=== PATIENT | female | born 1965 | race Caucasian/White ===

== ENCOUNTER 2018-06-05 18:01 | Inpatient (IN) ==
[2018-06-05] MEDS ORDERED: ASPIRIN 325 MG TABLET PO STA (18:17)
[2018-06-05 18:58] LABS: Calcium 8.1 MG/DL (8.5-10.1); Osmolality,Calculated 280.1 MOS/KG (273-304); Potassium 3.3 MMOL/L (3.5-5.1)
[2018-06-05] MEDS ORDERED: HEPARIN/NACL 0.9% 2 UNITS/ML 1,000 ML IV ONE (19:15)
[2018-06-05] MEDS ORDERED: LIDOCAINE 1% 20 ML VIAL ONE (19:15)
[2018-06-05] MEDS ORDERED: HYDROmorphone 2 MG/1 ML VIAL ONE (19:40)
[2018-06-05] MEDS ORDERED: MIDAZOLAM 2 MG/2 ML VIAL ONE (19:40)
[2018-06-05] MEDS ORDERED: diphenhydrAMINE 50 MG/1 ML VIAL ONE (19:44)
[2018-06-05] MEDS ORDERED: HYDROCORTISONE 100 MG VIAL ONE (19:44)
[2018-06-05] MEDS ORDERED: FAMOTIDINE 20 MG/2 ML VIAL IV ONE (20:21)
[2018-06-05] MEDS ORDERED: ENOXAPARIN 30 MG/0.3 ML SYRINGE ONE (20:22)
[2018-06-05] MEDS ORDERED: NITROGLYCERIN DRIP 50 MG/250 ML BOTTLE IV ONE (20:34)
[2018-06-05] MEDS ORDERED: HEPARIN/NACL 0.9% 2 UNITS/ML 500 ML IV ONE (20:45)
[2018-06-05] MEDS ORDERED: TICAGRELOR 90 MG TABLET ONE (21:11)
[2018-06-05] MEDS ORDERED: ZALEPLON 5 MG CAPSULE PO PRN (21:22)
[2018-06-05] MEDS ORDERED: NITROGLYCERIN SL 0.4 MG TABLET SL PRN (21:22)
[2018-06-05] MEDS ORDERED: ONDANSETRON 4 MG/2 ML VIAL IV PRN (21:22)
[2018-06-05] MEDS ORDERED: ONDANSETRON 4 MG/2 ML VIAL ONE (21:22)
[2018-06-05] MEDS ORDERED: SODIUM CHLORIDE 0.9% 1,000 ML IV SCH (21:30)
[2018-06-05] MEDS ORDERED: ONDANSETRON 4 MG/2 ML VIAL IV ONE (22:07)
[2018-06-05] MEDS ORDERED: NITROGLYCERIN 2% OINT 1 INCH/GM PACK TOP ONE (22:07)
[2018-06-06 03:42] LABS: Basophils % 0.2 % (0.0-0.8); Hemoglobin 11.7 GM/DL (12.0-16.0); Immature Granulocytes % 0.5 %; Immature Granulocytes Absolute 0.06 #; Lymphocytes # 1.3 10*3/uL (1.4-4.0); Mean Corpuscular HGB Conc 31.6 GM/DL (32-36); Mean Corpuscular Hemoglobin 29 PG (27-34); Mean Corpuscular Volume 91.1 FL (87-102); Mean Platelet Volume 10.5 FL (9.6-12.0); Monocytes # 0.6 10*3/uL (0.11-0.8); Monocytes % 4.7 % (1.7-12.7); Neutrophils # 10.1 10*3/uL (1.4-7.4); Neutrophils % 83.6 % (38.7-73.9); Platelet Count 197 T/CUMM (130-400); Red Blood Count 4.06 MC/CUMM (3.8-5.5); Red Cell Distribution Width 12.5 % (9.3-17.3)
[2018-06-06 04:07] LABS: Calcium 7.5 MG/DL (8.5-10.1); Osmolality,Calculated 281.3 MOS/KG (273-304); Potassium 3.6 MMOL/L (3.5-5.1); Risk Ratio 4.09; VLDL CHOLESTEROL 33.2 MG/DL
[2018-06-06 06:28] LABS: CKMB % 9.7 %
[2018-06-06 06:37] LABS: Troponin I 1.86 NG/ML (0.00-0.045)
[2018-06-06] MEDS ORDERED: ACETAMINOPHEN 325 MG TABLET PO PRN (08:01)
[2018-06-06] MEDS ORDERED: traMADol 50 MG TABLET PO PRN (08:02)
[2018-06-06] MEDS ORDERED: Cyanocobalamin (Vitamin B-12) [Vitamin B-12] 5,000 MCG SL SCH (09:00)
[2018-06-06] MEDS: CHOLECALCIFEROL 1,000 UNIT TABLET PO SCH (09:24)
[2018-06-06] MEDS: FOLIC ACID 0.4 MG TABLET PO SCH (09:24)
[2018-06-06] MEDS: OMEGA 3 ACID ETHYL ESTERS 1 GM CAPSULE PO SCH ×2 (09:24→21:07)
[2018-06-06] MEDS: METOPROLOL TARTRATE 100 MG TABLET PO SCH ×2 (09:25→16:21)
[2018-06-06] MEDS: ASPIRIN CHEW 81 MG TABLET PO SCH (09:25)
[2018-06-06] MEDS: LORATADINE 10 MG TABLET PO SCH (09:26)
[2018-06-06] MEDS: FAMOTIDINE 20 MG TABLET PO SCH (09:26)
[2018-06-06] MEDS: TICAGRELOR 90 MG TABLET PO SCH ×2 (09:26→21:07)
[2018-06-06] MEDS ORDERED: AZITHROMYCIN 250 MG TABLET PO ONE (10:56)
[2018-06-06] MEDS: ALBUTEROL/IPRATROPIUM 3 ML NEB RESP TX PRN ×2 (12:41→16:40)
[2018-06-06 13:46] LABS: CKMB % 12.4 %
[2018-06-06 13:48] LABS: Troponin I 5.32 NG/ML (0.00-0.045)
[2018-06-06] MEDS: SIMVASTATIN 20 MG TABLET PO SCH (16:21)
[2018-06-06] MEDS: COENZYME Q10 100 MG CAPSULE PO SCH (21:07)
[2018-06-07] MEDS: ALBUTEROL/IPRATROPIUM 3 ML NEB RESP TX PRN ×2 (01:02→17:55)
[2018-06-07 01:53] LABS: Barbiturates Screen,Urine Negative (Negative); Benzodiazepines Screen,Urine Positive (Negative); Cannabinoid Screen,Urine Negative (Negative); Opiate Screen,Urine Negative (Negative); Phencyclidine Screen,Urine Negative (Negative)
[2018-06-07] MEDS: ASPIRIN CHEW 81 MG TABLET PO SCH (09:01)
[2018-06-07] MEDS: METOPROLOL TARTRATE 100 MG TABLET PO SCH ×2 (09:01→16:36)
[2018-06-07] MEDS: TICAGRELOR 90 MG TABLET PO SCH ×2 (09:02→21:42)
[2018-06-07] MEDS: LORATADINE 10 MG TABLET PO SCH (09:02)
[2018-06-07] MEDS: FOLIC ACID 0.4 MG TABLET PO SCH (09:03)
[2018-06-07] MEDS: OMEGA 3 ACID ETHYL ESTERS 1 GM CAPSULE PO SCH ×2 (09:04→21:42)
[2018-06-07] MEDS: FAMOTIDINE 20 MG TABLET PO SCH (09:05)
[2018-06-07] MEDS: CHOLECALCIFEROL 1,000 UNIT TABLET PO SCH (09:05)
[2018-06-07] MEDS: AZITHROMYCIN 250 MG TABLET PO SCH (09:06)
[2018-06-07] MEDS: LISINOPRIL 5 MG TABLET PO SCH (09:15)
[2018-06-07] MEDS: FUROSEMIDE 40 MG TABLET PO SCH (09:16)
[2018-06-07] MEDS: SIMVASTATIN 20 MG TABLET PO SCH (16:36)
[2018-06-07] MEDS: COENZYME Q10 100 MG CAPSULE PO SCH (21:42)
[2018-06-08 04:36] LABS: Calcium 8.7 MG/DL (8.5-10.1); Osmolality,Calculated 275.5 MOS/KG (273-304)
[2018-06-08] MEDS ORDERED: POTASSIUM CHLORIDE 20 MEQ TABLET PO PRN (07:14)
[2018-06-08] MEDS ORDERED: POTASSIUM CHLORIDE 20 MEQ TABLET PO ONE (07:44)
[2018-06-08 07:58] VITALS: BP 113/61
[2018-06-08] MEDS: FOLIC ACID 0.4 MG TABLET PO SCH (08:34)
[2018-06-08] MEDS: OMEGA 3 ACID ETHYL ESTERS 1 GM CAPSULE PO SCH (08:34)
[2018-06-08] MEDS: TICAGRELOR 90 MG TABLET PO SCH (08:34)
[2018-06-08] MEDS: ASPIRIN CHEW 81 MG TABLET PO SCH (08:34)
[2018-06-08] MEDS: METOPROLOL TARTRATE 100 MG TABLET PO SCH (08:34)
[2018-06-08] MEDS: AZITHROMYCIN 250 MG TABLET PO SCH (08:34)
[2018-06-08] MEDS: FUROSEMIDE 40 MG TABLET PO SCH (08:34)
[2018-06-08] MEDS: FAMOTIDINE 20 MG TABLET PO SCH (08:34)
[2018-06-08] MEDS: LISINOPRIL 5 MG TABLET PO SCH (08:34)
[2018-06-08] MEDS: LORATADINE 10 MG TABLET PO SCH (08:34)
[2018-06-08] MEDS: CHOLECALCIFEROL 1,000 UNIT TABLET PO SCH (08:34)
[2018-06-08] MEDS: ALBUTEROL/IPRATROPIUM 3 ML NEB RESP TX PRN (10:41)
== END 2018-06-08 13:30 | disposition home or self-care (01) | DRG 246 ==
LOC: N.EDINP 18:01 → N.ED 18:01 → N.TELES 19:28
PROVIDERS: ADMIT Internal Medicine Cardiovascular Disease; ATTEND Internal Medicine Cardiovascular Disease
PROC: CLCCHCL (ICD-10-PCS; 2018-06-05 19:45)

== ENCOUNTER 2019-11-09 00:29 | Observation (INO) ==
[2019-11-09] MEDS ORDERED: methylPREDNISolone SOD SUC 125 MG/2 ML VIAL IV STA (01:00)
[2019-11-09] MEDS ORDERED: ONDANSETRON 4 MG/2 ML VIAL IV STA (01:00)
[2019-11-09] MEDS ORDERED: FUROSEMIDE 40 MG/4 ML VIAL IV STA (01:00)
[2019-11-09] MEDS ORDERED: ALBUTEROL/IPRATROPIUM 3 ML NEB RESP TX STA (01:00)
[2019-11-09 01:31] LABS: Apearance,Urine CLEAR (Clear); Bilirubin,Urine Negative (Negative); Blood, Urine Small mg/dL (Negative); Glucose,Urine (UA) >=500 mg/dL (Negative); Ketones,Urine 5 mg/dL (Negative); Mucus,Urine Occasional /LPF (Occasional); Nitrite,Urine Negative (Negative); Protein,Urine Negative; RBC,Urine 3 /HPF (0-4); Squamous Epithelial Cell,Urine Occasional /HPF (0-10); Urine Color Yellow (Yellow); Urine Specific Gravity 1.023 (1.001-1.035); Urine Urobilinogen < 2.0 EU/DL (0.2-1.0); WBC,Urine 11 /HPF (0-6)
[2019-11-09 02:04] LABS: Basophils % 0.2 % (0.0-0.8); Eosinophils % 0.2 % (0.00-10.9); Hematocrit 38.4 VOL% (35.7-47.0); Hemoglobin 12.6 GM/DL (12.0-16.0); Immature Granulocytes % 0.6 %; Lymphocytes # 2.6 10*3/uL (1.4-4.0); Lymphocytes % 15.7 % (21.3-54.2); Mean Corpuscular HGB Conc 32.8 GM/DL (32-36); Mean Corpuscular Volume 89.9 FL (87-102); Monocytes % 7.3 % (1.7-12.7); Platelet Count 194 T/CUMM (130-400); Red Blood Count 4.27 MC/CUMM (3.8-5.5); Red Cell Distribution Width 12.6 % (9.3-17.3); White Blood Count 16.5 T/CUMM (4-12)
[2019-11-09] MEDS: ALBUTEROL/IPRATROPIUM 3 ML NEB RESP TX SCH ×5 (02:10→23:55)
[2019-11-09 02:11] LABS: Alanine Aminotransferase 33 U/L (13-56); Albumin 3.1 G/DL (3.4-5.0); Alkaline Phosphatase 121 U/L (45-117); Aspartate Amino Transferase 18 U/L (0-37); Bilirubin,Total < 0.39 MG/DL (0.2-1.0); Blood Urea Nitrogen 22 MG/DL (7-18); Calcium 8.5 MG/DL (8.5-10.1); Estimated Glom Filtration Rate 68 ML/MIN; Glucose 336 MG/DL (74-106); Osmolality,Calculated 288.8 MOS/KG (273-304); Total Protein 6.8 G/DL (6.4-8.3)
[2019-11-09 02:15] LABS: INR 0.9; PT Patient Result 9.9 SECS (9.8-11.9)
[2019-11-09] MEDS ORDERED: ACETAMINOPHEN 325 MG TABLET PO PRN (03:04)
[2019-11-09] MEDS ORDERED: DEXTROSE 50% 25 GM/50 ML VIAL IV PRN ×2 (03:04→03:10)
[2019-11-09] MEDS ORDERED: GLUCAGON 1 MG VIAL IM PRN ×2 (03:04→03:10)
[2019-11-09] MEDS ORDERED: MORPHINE 4 MG/1 ML VIAL IV PRN (03:04)
[2019-11-09] MEDS ORDERED: NITROGLYCERIN SL 0.4 MG TABLET SL PRN (03:09)
[2019-11-09] MEDS ORDERED: methylPREDNISolone SOD SUC 40 MG/1 ML VIAL IV SCH (03:30)
[2019-11-09] MEDS: ENOXAPARIN 40 MG/0.4 ML SYRINGE SUBCUT SCH (05:18)
[2019-11-09 06:00] LABS: Basophils % 0.2 % (0.0-0.8); Hematocrit 40.2 VOL% (35.7-47.0); Hemoglobin 13.4 GM/DL (12.0-16.0); Immature Granulocytes % 0.7 %; Immature Granulocytes Absolute 0.11 #; Lymphocytes # 0.9 10*3/uL (1.4-4.0); Lymphocytes % 5.7 % (21.3-54.2); Mean Corpuscular HGB Conc 33.3 GM/DL (32-36); Mean Corpuscular Volume 89.9 FL (87-102); Monocytes % 1.5 % (1.7-12.7); Neutrophils % 91.9 % (38.7-73.9); Platelet Count 197 T/CUMM (130-400); Red Blood Count 4.47 MC/CUMM (3.8-5.5); Red Cell Distribution Width 12.5 % (9.3-17.3)
[2019-11-09 06:27] LABS: Calcium 8.8 MG/DL (8.5-10.1); Osmolality,Calculated 288.1 MOS/KG (273-304)
[2019-11-09 06:30] LABS: Hypochromasia 1+; Lymphocytes 5 % (20-55); Platelet Estimate Adequate; Segmented Neutrophils 94 % (50-85); Total Cells Counted 100
[2019-11-09] MEDS ORDERED: METOPROLOL TARTRATE 25 MG TABLET PO SCH (09:00)
[2019-11-09] MEDS ORDERED: lisinopriL 5 MG TABLET PO SCH (09:00)
[2019-11-09] MEDS: PANTOPRAZOLE 40 MG TABLET PO SCH (10:09)
[2019-11-09] MEDS: FUROSEMIDE 20 MG TABLET PO SCH (10:09)
[2019-11-09] MEDS: DOXYCYCLINE HYCLATE 100 MG CAPSULE PO SCH ×2 (10:09→21:27)
[2019-11-09] MEDS: ASPIRIN CHEW 81 MG TABLET PO SCH (10:10)
[2019-11-09] MEDS: TICAGRELOR 90 MG TABLET PO SCH ×2 (10:10→21:26)
[2019-11-09] MEDS: INSULIN REGULAR 100 UNIT/ML SUBCUT SCH ×4 (10:10→21:40)
[2019-11-09] MEDS ORDERED: INSULIN REGULAR 100 UNIT/ML SUBCUT ONE (12:38)
[2019-11-09] MEDS ORDERED: ERTAPENEM 1,000 MG in SODIUM CHLORIDE 0.9% 100 ML IV SCH (14:00)
[2019-11-09] MEDS: metFORMIN 500 MG TABLET PO SCH (16:37)
[2019-11-09] MEDS ORDERED: ROSUVASTATIN 20 MG TABLET PO SCH (21:00)
[2019-11-09] MEDS ORDERED: sitaGLIPtin 100 MG TABLET PO SCH (21:00)
[2019-11-09] MEDS: carvediloL 3.125 MG TABLET PO SCH (21:26)
[2019-11-09] MEDS: FLUTICASONE/SALMETEROL 100-50 DISKUS 14 DOSE INH SCH (21:27)
[2019-11-09] MEDS: methylPREDNISolone SOD SUC 40 MG/1 ML VIAL IV SCH (21:32)
[2019-11-10] MEDS: ALBUTEROL/IPRATROPIUM 3 ML NEB RESP TX SCH ×3 (02:57→11:02)
[2019-11-10] MEDS: ENOXAPARIN 40 MG/0.4 ML SYRINGE SUBCUT SCH (03:13)
[2019-11-10 05:54] LABS: Basophils % 0.1 % (0.0-0.8); Hematocrit 40.2 VOL% (35.7-47.0); Hemoglobin 12.9 GM/DL (12.0-16.0); Immature Granulocytes % 1.2 %; Immature Granulocytes Absolute 0.27 #; Lymphocytes # 1.4 10*3/uL (1.4-4.0); Lymphocytes % 6.2 % (21.3-54.2); Mean Corpuscular HGB Conc 32.1 GM/DL (32-36); Mean Platelet Volume 10.1 FL (9.6-12.0); Monocytes % 3.6 % (1.7-12.7); Neutrophils % 88.9 % (38.7-73.9); Platelet Count 223 T/CUMM (130-400); Red Blood Count 4.37 MC/CUMM (3.8-5.5); Red Cell Distribution Width 12.6 % (9.3-17.3); White Blood Count 23.2 T/CUMM (4-12)
[2019-11-10 06:42] LABS: Calcium 9.3 MG/DL (8.5-10.1); Osmolality,Calculated 285.7 MOS/KG (273-304)
[2019-11-10 06:54] LABS: Hypochromasia 1+; Lymphocytes 7 % (20-55); Segmented Neutrophils 90 % (50-85); Total Cells Counted 100
[2019-11-10 06:55] LABS: Microcytosis 1+; Platelet Estimate Normal
[2019-11-10] MEDS ORDERED: lisinopriL 2.5 MG TABLET PO SCH (09:00)
[2019-11-10] MEDS: INSULIN REGULAR 100 UNIT/ML SUBCUT SCH ×2 (09:20→11:53)
[2019-11-10] MEDS: ASPIRIN CHEW 81 MG TABLET PO SCH (09:20)
[2019-11-10] MEDS: DOXYCYCLINE HYCLATE 100 MG CAPSULE PO SCH (09:20)
[2019-11-10] MEDS: PANTOPRAZOLE 40 MG TABLET PO SCH (09:20)
[2019-11-10] MEDS: methylPREDNISolone SOD SUC 40 MG/1 ML VIAL IV SCH (09:20)
[2019-11-10] MEDS: carvediloL 3.125 MG TABLET PO SCH (09:20)
[2019-11-10] MEDS: TICAGRELOR 90 MG TABLET PO SCH (09:20)
[2019-11-10] MEDS: metFORMIN 500 MG TABLET PO SCH (09:20)
[2019-11-10] MEDS: FUROSEMIDE 20 MG TABLET PO SCH (09:21)
[2019-11-10] MEDS: FLUTICASONE/SALMETEROL 100-50 DISKUS 14 DOSE INH SCH (09:21)
[2019-11-10 12:17] VITALS: BP 137/60
== END 2019-11-10 13:52 | disposition home or self-care (01) ==
LOC: EDUNIT# → EDBD → N.ED 00:29 → N.EDINP 00:29 → N.TELES 04:50
PROVIDERS: ADMIT Hospitalist; ATTEND Hospitalist